=== PATIENT | female | born 1935 | race Two or more races ===

== ENCOUNTER 2023-07-16 11:00 | Emergency (ER) | payer OTHER ==
[~2023-07-16] VITALS: Ht 154.9 cm; Wt 70.3 kg
[2023-07-16 11:27] VITALS: BP 133/55; PULSE 105; RESP 18; TEMP 98; O2SAT 98
[2023-07-16] MEDS: ACETAMINOPHEN 500 MG TAB PO ONE (12:08)
[2023-07-16 12:30] LABS: Basophils # (auto) 0 10 ^3/uL (0-0.2); Basophils % (auto) 0.4 % (0.0-2.0); Eosinophils # (auto) 0 10 ^3/uL (0-0.8); Eosinophils % (auto) 0.4 % (0.0-7.0); Hematocrit 34.4 % (36.0-46.0); Hemoglobin 11.4 g/dL (12.2-16.2); Lymphocytes # (auto) 1.3 10 ^3/uL (0.4-5.4); Lymphocytes % (auto) 11.9 % (10.0-50.0); Mean Corpuscular Hemoglobin 27.5 pg (28.0-32.0); Mean Corpuscular Volume 83.3 fL (80.0-100.0); Monocytes # (auto) 0.9 10 ^3/uL (0-1.3); Monocytes % (auto) 7.9 % (0.0-12.0); Neutrophils # (auto) 8.8 10 ^3/uL (1.6-8.6); Neutrophils % (auto) 79.4 % (37.0-80.0); Red Blood Cells 4.13 10^6/uL (4.0-5.20); White Blood Cell 11.1 10^3/uL (4.4-10.8)
[2023-07-16 13:33] LABS: Chloride 101 mmol/L (98-107); Potassium 3.3 mmol/L (3.5-5.1); Sodium 136 mmol/L (136-145)
[2023-07-16 13:34] LABS: Anion Gap 7 (5-15); Carbon Dioxide 28 mmol/L (20-30)
[2023-07-16 13:35] LABS: Calcium 9.7 mg/dL (8.5-10.1)
[2023-07-16 13:40] LABS: BUN/Creatinine Ratio 16.1 (10.0-20.0); Blood Urea Nitrogen 15 mg/dL (9-23); Glucose 140 mg/dL (74-106)
[2023-07-16] MEDS ORDERED: TRAM-626 PO (13:42)
[2023-07-16] MEDS ORDERED: PRED20TA2 PO (13:42)
[2023-07-16] MEDS: methylPREDNISolone SOD SUCC 125 MG/2 ML VL IM ONE (14:00)
[2023-07-18 13:26] LABS: Uric Acid 5.9 mg/dL (3.1-7.8)
== END 2023-07-16 14:01 | disposition home or self-care (01) ==
LOC: EDBD 11:00 → ER 11:00
DX: M10.9 Gout, unspecified (principal)
CPT/HCPCS: 36415; 73110; 80048; 84550; 85025; 96372; 99284; J2930